=== PATIENT | female | born 1965 | race Caucasian/White ===

== ENCOUNTER 2016-11-15 18:26 | Emergency (ER) | payer MEDICAID, OTHER ==
[~2016-11-15] VITALS: Ht 165.1 cm; Wt 68.0 kg
[~2016-11-15 18:26] MED LIST: DIPH25 PO; ILOP4TAB2 PO; MIRT30 PO; VENL-68 PO; VITAD1000 PO
[2016-11-15 19:51] LABS: BASOPHILS % (AUTO) 0.4 % (0.0-2.0); EOSINOPHILS % (AUTO) 3.1 % (1.0-6.0); HEMATOCRIT 46.7 % (36-46); HEMOGLOBIN 15.8 g/dL (12.0-16.0); LYMPHOCYTES # (AUTO) 3.2 K/uL (1.0-4.8); LYMPHOCYTES % (AUTO) 28.4 % (22.0-44.0); MEAN CORPUSCULAR HEMOGLOBIN 30.7 pg (26.0-34.0); MEAN CORPUSCULAR HGB CONC 33.9 G/dL (31.0-37.0); MEAN CORPUSCULAR VOLUME 91 fL (80-100); MONOCYTES # (AUTO) 0.7 K/uL (0.1-1.0); MONOCYTES % (AUTO) 6.2 % (2.0-9.0); NEUTROPHILS # (AUTO) 6.9 K/uL (1.8-7.7); NEUTROPHILS % (AUTO) 61.9 % (40.0-70.0); PLATELET COUNT (AUTO) 296 K/uL (150-450); RED BLOOD CELL COUNT(AUTO) 5.15 MIL/uL (4.00-5.20); RED CELL DISTRIBUTION WIDTH 12.9 % (11.5-14.5); WHITE BLOOD COUNT (AUTO) 11.1 K/uL (4.5-11.0)
[2016-11-15 19:58] LABS: ANION GAP 6 mmol/L (8-16); CALCIUM, TOTAL 9.3 mg/dL (8.8-10.5); CARBON DIOXIDE 30 mmol/L (22-29); CHLORIDE 101 mmol/L (98-107); CREATININE 0.65 mg/dL (0.60-1.30); GLOMERULAR FILTR. RATE CALC > 60 mL/min (>60); POTASSIUM 4.2 mmol/L (3.5-5.1); SODIUM SERUM 137 mmol/L (136-145); UREA NITROGEN, BLOOD 18 mg/dL (7-18)
[2016-11-15 20:04] LABS: ALANINE AMINOTRANSFERASE 23 U/L (12-78); ALBUMIN 4.4 g/dL (3.4-5.0); ASPARTATE AMINOTRANSFERASE 14 U/L (15-37); BILIRUBIN,TOTAL 0.3 mg/dL (0.1-1.0); TOTAL PROTEIN, SERUM 7.7 g/dL (6.4-8.2)
[2016-11-15 21:40] VITALS: BP 118/72
== END 2016-11-15 21:43 | disposition home or self-care (01) ==
LOC: EMS 18:28
DX: F20.9 Schizophrenia, unspecified (principal); F17.210 Nicotine dependence, cigarettes, uncomplicated; Z88.1 Allergy status to other antibiotic agents; Z88.8 Allergy status to other drugs, medicaments and biological substances
CPT/HCPCS: 36415; 80053; 85025; 99284; G0480

== ENCOUNTER 2016-11-18 06:42 | Inpatient (IN) | payer MEDICAID, OTHER ==
[~2016-11-18] VITALS: Ht 165.1 cm; Wt 68.5 kg
[2016-11-18 07:18] LABS: BASOPHILS # (AUTO) 0.09 K/uL (0.00-0.20); BASOPHILS % (AUTO) 0.8 % (0.0-2.0); EOSINOPHILS # (AUTO) 0.25 K/uL (0.00-0.70); EOSINOPHILS % (AUTO) 2.26 % (1.0-6.0); HEMATOCRIT 43.4 % (36-46); HEMOGLOBIN 15.4 g/dL (12.0-16.0); LYMPHOCYTES # (AUTO) 2.2 K/uL (1.0-4.8); LYMPHOCYTES % (AUTO) 20.2 % (22.0-44.0); MEAN CORPUSCULAR HEMOGLOBIN 31.7 pg (26.0-34.0); MEAN CORPUSCULAR HGB CONC 35.5 G/dL (31.0-37.0); MEAN CORPUSCULAR VOLUME 89 fL (80-100); MONOCYTES # (AUTO) 0.6 K/uL (0.1-1.0); MONOCYTES % (AUTO) 5.1 % (2.0-9.0); NEUTROPHILS % (AUTO) 71.7 % (40.0-70.0); PLATELET COUNT (AUTO) 321 K/uL (150-450); RED BLOOD CELL COUNT(AUTO) 4.85 MIL/uL (4.00-5.20); RED CELL DISTRIBUTION WIDTH 13.2 % (11.5-14.5); WHITE BLOOD COUNT (AUTO) 11.1 K/uL (4.5-11.0)
[2016-11-18 07:32] LABS: ANION GAP 6 mmol/L (8-16); CALCIUM, TOTAL 9.4 mg/dL (8.8-10.5); CARBON DIOXIDE 30 mmol/L (22-29); CHLORIDE 101 mmol/L (98-107); CREATININE 0.78 mg/dL (0.60-1.30); GLOMERULAR FILTR. RATE CALC > 60 mL/min (>60); POTASSIUM 3.3 mmol/L (3.5-5.1); SODIUM SERUM 137 mmol/L (136-145); UREA NITROGEN, BLOOD 13 mg/dL (7-18)
[2016-11-18 07:38] LABS: ALANINE AMINOTRANSFERASE 27 U/L (12-78); ALBUMIN 4.6 g/dL (3.4-5.0); ASPARTATE AMINOTRANSFERASE 15 U/L (15-37); BILIRUBIN,TOTAL 0.4 mg/dL (0.1-1.0); TOTAL PROTEIN, SERUM 7.9 g/dL (6.4-8.2)
[2016-11-18 13:35] VITALS: BP 119/75
[2016-11-18] MEDS ORDERED: POTASSIUM CHLORIDE 20 MEQ ER TABLET PO ONE (16:30)
[2016-11-18] MEDS: NICOTINE 21 MG/24 HOUR PATCH TD SCH (19:04)
[2016-11-18 20:30] VITALS: BP 121/75
[2016-11-18] MEDS: DiphenhydrAMINE HCL 25 MG CAPSULE PO SCH (20:56)
[2016-11-18] MEDS: ILOPERIDONE 4 MG TABLET PO SCH (20:56)
[2016-11-18] MEDS: MIRTAZAPINE 15 MG TABLET PO SCH (20:56)
[2016-11-18] MEDS ORDERED: ZOLPIDEM TARTRATE 5 MG TABLET PO PRN (21:45)
[2016-11-19 00:49] VITALS: BP 118/65
[2016-11-19] MEDS ORDERED: INFLUENZA VIRUS VACCINE QVS 2016-17 (3YR+)/PF 60 MCG/0.5 ML SYRINGE IM ONE (03:15)
[2016-11-19] MEDS ORDERED: PNEUMOCOCCAL VACCINE POLYVALENT 0.5 ML VIAL [PPSV23] IM ONE (03:15)
[2016-11-19] MEDS: NICOTINE 21 MG/24 HOUR PATCH TD SCH (08:52)
[2016-11-19] MEDS: VENLAFAXINE HCL 150 MG ER CAPSULE PO SCH ×2 (08:52→08:56)
[2016-11-19] MEDS: ILOPERIDONE 4 MG TABLET PO SCH ×2 (08:56→21:00)
[2016-11-19 08:57] VITALS: BP 116/64
[2016-11-19] MEDS ORDERED: ONDANSETRON HCL 4 MG TABLET PO PRN (09:30)
[2016-11-19] MEDS ORDERED: BENZOCAINE/MENTHOL LOZENGE MM PRN (09:30)
[2016-11-19] MEDS ORDERED: ACETAMINOPHEN 325 MG TABLET PO PRN (09:30)
[2016-11-19] MEDS ORDERED: MAG HYDROX/AL HYDROX/SIMETH ES 30 ML SUSPENSION UDCUP PO PRN (09:30)
[2016-11-19] MEDS ORDERED: CloNIDine HCL 0.1 MG TABLET PO PRN (09:30)
[2016-11-19] MEDS ORDERED: BACITRACIN 28.4 GM OINTMENT TP PRN (09:30)
[2016-11-19] MEDS ORDERED: ALBUTEROL SULFATE HFA 90 MCG/PUFF 8 GM INHALER IH PRN (09:30)
[2016-11-19] MEDS ORDERED: LOPERAMIDE HCL 2 MG CAPSULE PO PRN (09:30)
[2016-11-19] MEDS ORDERED: IBUPROFEN 600 MG TABLET PO PRN (09:30)
[2016-11-19] MEDS ORDERED: PETROLATUM,WHITE 71 GM JELLY TP PRN (09:30)
[2016-11-19 16:37] VITALS: BP 119/77
[2016-11-19] MEDS: DiphenhydrAMINE HCL 25 MG CAPSULE PO SCH (20:03)
[2016-11-19] MEDS: MIRTAZAPINE 15 MG TABLET PO SCH (20:03)
[2016-11-20 04:11] VITALS: BP 104/67
[2016-11-20] MEDS: ILOPERIDONE 4 MG TABLET PO SCH ×2 (08:21→20:02)
[2016-11-20] MEDS: NICOTINE 21 MG/24 HOUR PATCH TD SCH (08:21)
[2016-11-20] MEDS: VENLAFAXINE HCL 150 MG ER CAPSULE PO SCH (08:21)
[2016-11-20] MEDS: CHOLECALCIFEROL (VIT D3) 1,000 UNITS TABLET PO SCH (08:21)
[2016-11-20] MEDS: FLUTICASONE/VILANTEROL 200-25 MCG/INH INHALER [14] IH SCH (08:22)
[2016-11-20 09:05] VITALS: BP 115/69
[2016-11-20 16:12] VITALS: BP 116/68
[2016-11-20] MEDS: DiphenhydrAMINE HCL 25 MG CAPSULE PO SCH (20:02)
[2016-11-20] MEDS: MIRTAZAPINE 15 MG TABLET PO SCH (20:03)
[2016-11-21 00:17] VITALS: BP 107/65
[2016-11-21] MEDS: ILOPERIDONE 4 MG TABLET PO SCH ×2 (08:16→20:27)
[2016-11-21] MEDS: CHOLECALCIFEROL (VIT D3) 1,000 UNITS TABLET PO SCH (08:16)
[2016-11-21] MEDS: VENLAFAXINE HCL 150 MG ER CAPSULE PO SCH (08:17)
[2016-11-21] MEDS: NICOTINE 21 MG/24 HOUR PATCH TD SCH (08:17)
[2016-11-21] MEDS: FLUTICASONE/VILANTEROL 200-25 MCG/INH INHALER [14] IH SCH (08:19)
[2016-11-21 08:48] VITALS: BP 110/70
[2016-11-21] MEDS: VENLAFAXINE HCL 75 MG ER CAPSULE PO SCH (14:47)
[2016-11-21 16:16] VITALS: BP 102/64
[2016-11-21] MEDS: MIRTAZAPINE 15 MG TABLET PO SCH (20:26)
[2016-11-21] MEDS: DiphenhydrAMINE HCL 25 MG CAPSULE PO SCH (20:26)
[2016-11-22 01:52] VITALS: BP 119/66
[2016-11-22] MEDS: FLUTICASONE/VILANTEROL 200-25 MCG/INH INHALER [14] IH SCH (08:11)
[2016-11-22] MEDS: VENLAFAXINE HCL 150 MG ER CAPSULE PO SCH (08:12)
[2016-11-22] MEDS: ILOPERIDONE 4 MG TABLET PO SCH ×2 (08:12→20:07)
[2016-11-22] MEDS: CHOLECALCIFEROL (VIT D3) 1,000 UNITS TABLET PO SCH (08:12)
[2016-11-22] MEDS: VENLAFAXINE HCL 75 MG ER CAPSULE PO SCH (08:12)
[2016-11-22] MEDS: NICOTINE 21 MG/24 HOUR PATCH TD SCH (08:13)
[2016-11-22 08:48] VITALS: BP 118/67
[2016-11-22 16:49] VITALS: BP 115/71
[2016-11-22] MEDS: DiphenhydrAMINE HCL 25 MG CAPSULE PO SCH (20:07)
[2016-11-22] MEDS: MIRTAZAPINE 15 MG TABLET PO SCH (20:07)
[2016-11-23 05:46] VITALS: BP 114/72
[2016-11-23] MEDS: FLUTICASONE/VILANTEROL 200-25 MCG/INH INHALER [14] IH SCH (08:08)
[2016-11-23] MEDS: CHOLECALCIFEROL (VIT D3) 1,000 UNITS TABLET PO SCH (08:09)
[2016-11-23] MEDS: VENLAFAXINE HCL 150 MG ER CAPSULE PO SCH (08:09)
[2016-11-23] MEDS: ILOPERIDONE 4 MG TABLET PO SCH ×2 (08:09→20:11)
[2016-11-23] MEDS: NICOTINE 21 MG/24 HOUR PATCH TD SCH (08:09)
[2016-11-23 08:47] VITALS: BP 116/68
[2016-11-23] MEDS ORDERED: VENLAFAXINE HCL 75 MG ER CAPSULE PO SCH (15:00)
[2016-11-23 16:30] VITALS: BP 102/67
[2016-11-23] MEDS: MIRTAZAPINE 15 MG TABLET PO SCH (20:11)
[2016-11-23] MEDS: DiphenhydrAMINE HCL 25 MG CAPSULE PO SCH (20:11)
[2016-11-24 06:00] VITALS: BP 101/63
[2016-11-24] MEDS: VENLAFAXINE HCL 150 MG ER CAPSULE PO SCH ×2 (08:23→15:03)
[2016-11-24] MEDS: FLUTICASONE/VILANTEROL 200-25 MCG/INH INHALER [14] IH SCH (08:23)
[2016-11-24] MEDS: NICOTINE 21 MG/24 HOUR PATCH TD SCH (08:23)
[2016-11-24] MEDS: CHOLECALCIFEROL (VIT D3) 1,000 UNITS TABLET PO SCH (08:23)
[2016-11-24] MEDS: ILOPERIDONE 4 MG TABLET PO SCH ×2 (08:23→20:55)
[2016-11-24 08:46] VITALS: BP 109/64
[2016-11-24 16:20] VITALS: BP 106/68
[2016-11-24] MEDS: MIRTAZAPINE 15 MG TABLET PO SCH (20:55)
[2016-11-24] MEDS: DiphenhydrAMINE HCL 25 MG CAPSULE PO SCH (20:55)
[2016-11-25 05:49] VITALS: BP 104/63
[2016-11-25 08:39] VITALS: BP 117/77
[2016-11-25] MEDS: FLUTICASONE/VILANTEROL 200-25 MCG/INH INHALER [14] IH SCH (08:44)
[2016-11-25] MEDS: ILOPERIDONE 4 MG TABLET PO SCH ×2 (08:45→20:55)
[2016-11-25] MEDS: CHOLECALCIFEROL (VIT D3) 1,000 UNITS TABLET PO SCH (08:45)
[2016-11-25] MEDS: VENLAFAXINE HCL 150 MG ER CAPSULE PO SCH ×2 (08:45→14:27)
[2016-11-25] MEDS: NICOTINE 21 MG/24 HOUR PATCH TD SCH (08:50)
[2016-11-25 16:13] VITALS: BP 112/64
[2016-11-25] MEDS: MAGNESIUM HYDROXIDE SUSPENSION 30 ML UDCUP PO PRN (17:23)
[2016-11-25] MEDS: DiphenhydrAMINE HCL 25 MG CAPSULE PO SCH (20:55)
[2016-11-25] MEDS: MIRTAZAPINE 15 MG TABLET PO SCH (20:55)
[2016-11-26 05:51] VITALS: BP 101/60
[2016-11-26] MEDS: FLUTICASONE/VILANTEROL 200-25 MCG/INH INHALER [14] IH SCH (08:43)
[2016-11-26] MEDS: ILOPERIDONE 4 MG TABLET PO SCH ×2 (08:44→20:20)
[2016-11-26] MEDS: CHOLECALCIFEROL (VIT D3) 1,000 UNITS TABLET PO SCH (08:44)
[2016-11-26] MEDS: VENLAFAXINE HCL 150 MG ER CAPSULE PO SCH ×2 (08:44→14:50)
[2016-11-26] MEDS: NICOTINE 21 MG/24 HOUR PATCH TD SCH (08:44)
[2016-11-26 10:43] VITALS: BP 99/68
[2016-11-26] MEDS: MAGNESIUM HYDROXIDE SUSPENSION 30 ML UDCUP PO PRN (16:19)
[2016-11-26 16:27] VITALS: BP 98/65
[2016-11-26] MEDS: MIRTAZAPINE 30 MG TABLET PO SCH (20:20)
[2016-11-26] MEDS: DiphenhydrAMINE HCL 25 MG CAPSULE PO SCH (20:20)
[2016-11-27 03:53] VITALS: BP 105/63
[2016-11-27 07:45] VITALS: BP 98/74
[2016-11-27 08:00] VITALS: BP 98/74
[2016-11-27] MEDS: ILOPERIDONE 4 MG TABLET PO SCH ×2 (08:44→21:32)
[2016-11-27] MEDS: VENLAFAXINE HCL 150 MG ER CAPSULE PO SCH ×2 (08:44→14:42)
[2016-11-27] MEDS: FLUTICASONE/VILANTEROL 200-25 MCG/INH INHALER [14] IH SCH (08:44)
[2016-11-27] MEDS: NICOTINE 21 MG/24 HOUR PATCH TD SCH (08:45)
[2016-11-27] MEDS: CHOLECALCIFEROL (VIT D3) 1,000 UNITS TABLET PO SCH (08:46)
[2016-11-27 16:17] VITALS: BP 109/69
[2016-11-27] MEDS: MIRTAZAPINE 30 MG TABLET PO SCH (21:32)
[2016-11-27] MEDS: DiphenhydrAMINE HCL 25 MG CAPSULE PO SCH (21:32)
[2016-11-28 05:25] VITALS: BP 112/63
[2016-11-28] MEDS: ILOPERIDONE 4 MG TABLET PO SCH (08:52)
[2016-11-28] MEDS: CHOLECALCIFEROL (VIT D3) 1,000 UNITS TABLET PO SCH (08:52)
[2016-11-28] MEDS: FLUTICASONE/VILANTEROL 200-25 MCG/INH INHALER [14] IH SCH (08:53)
[2016-11-28] MEDS: NICOTINE 21 MG/24 HOUR PATCH TD SCH (08:53)
[2016-11-28] MEDS: VENLAFAXINE HCL 150 MG ER CAPSULE PO SCH ×2 (08:53→15:12)
[2016-11-28 10:04] VITALS: BP 118/68
[2016-11-28 18:29] VITALS: BP 104/66
[2016-11-28] MEDS: MIRTAZAPINE 30 MG TABLET PO SCH (20:09)
[2016-11-28] MEDS: DiphenhydrAMINE HCL 25 MG CAPSULE PO SCH (20:09)
[2016-11-28] MEDS: ILOPERIDONE 2 MG TABLET PO SCH (21:50)
[2016-11-29 07:00] VITALS: BP 114/68
[2016-11-29 08:48] VITALS: BP 108/60
[2016-11-29] MEDS: VENLAFAXINE HCL 150 MG ER CAPSULE PO SCH ×2 (09:52→14:51)
[2016-11-29] MEDS: CHOLECALCIFEROL (VIT D3) 1,000 UNITS TABLET PO SCH (09:52)
[2016-11-29] MEDS: ILOPERIDONE 2 MG TABLET PO SCH ×2 (09:52→20:20)
[2016-11-29] MEDS: FLUTICASONE/VILANTEROL 200-25 MCG/INH INHALER [14] IH SCH (09:53)
[2016-11-29] MEDS: NICOTINE 21 MG/24 HOUR PATCH TD SCH (11:50)
[2016-11-29 16:18] VITALS: BP 97/68
[2016-11-29] MEDS: MIRTAZAPINE 30 MG TABLET PO SCH (20:20)
[2016-11-29] MEDS: DiphenhydrAMINE HCL 25 MG CAPSULE PO SCH (20:20)
[2016-11-30 06:26] VITALS: BP 111/65
[2016-11-30 08:53] VITALS: BP 101/63
[2016-11-30] MEDS: CHOLECALCIFEROL (VIT D3) 1,000 UNITS TABLET PO SCH (08:53)
[2016-11-30] MEDS: ILOPERIDONE 2 MG TABLET PO SCH ×2 (08:54→20:25)
[2016-11-30] MEDS: NICOTINE 21 MG/24 HOUR PATCH TD SCH (08:54)
[2016-11-30] MEDS: VENLAFAXINE HCL 150 MG ER CAPSULE PO SCH ×2 (08:55→14:35)
[2016-11-30] MEDS: FLUTICASONE/VILANTEROL 200-25 MCG/INH INHALER [14] IH SCH (08:55)
[2016-11-30 16:27] VITALS: BP 120/68
[2016-11-30] MEDS: DiphenhydrAMINE HCL 25 MG CAPSULE PO SCH (20:25)
[2016-11-30] MEDS: MIRTAZAPINE 30 MG TABLET PO SCH (20:25)
[2016-12-01 00:38] VITALS: BP 102/61
[2016-12-01] MEDS: VENLAFAXINE HCL 150 MG ER CAPSULE PO SCH ×2 (08:10→14:55)
[2016-12-01] MEDS: CHOLECALCIFEROL (VIT D3) 1,000 UNITS TABLET PO SCH (08:10)
[2016-12-01] MEDS: ILOPERIDONE 2 MG TABLET PO SCH ×2 (08:10→20:18)
[2016-12-01] MEDS: NICOTINE 21 MG/24 HOUR PATCH TD SCH (08:11)
[2016-12-01 08:35] VITALS: BP 103/68
[2016-12-01] MEDS: FLUTICASONE/VILANTEROL 200-25 MCG/INH INHALER [14] IH SCH (09:06)
[2016-12-01 16:21] VITALS: BP 115/77
[2016-12-01] MEDS: MIRTAZAPINE 30 MG TABLET PO SCH (20:18)
[2016-12-01] MEDS: DiphenhydrAMINE HCL 25 MG CAPSULE PO SCH (20:18)
[2016-12-02 07:07] VITALS: BP 101/62
[2016-12-02] MEDS: CHOLECALCIFEROL (VIT D3) 1,000 UNITS TABLET PO SCH (08:35)
[2016-12-02] MEDS: VENLAFAXINE HCL 150 MG ER CAPSULE PO SCH ×2 (08:35→14:19)
[2016-12-02] MEDS: ILOPERIDONE 2 MG TABLET PO SCH ×2 (08:35→20:17)
[2016-12-02] MEDS: NICOTINE 21 MG/24 HOUR PATCH TD SCH (08:36)
[2016-12-02] MEDS: FLUTICASONE/VILANTEROL 200-25 MCG/INH INHALER [14] IH SCH (08:36)
[2016-12-02 08:39] VITALS: BP 100/62
[2016-12-02 16:11] VITALS: BP 104/67
[2016-12-02] MEDS ORDERED: OLANZapine 5 MG RAPDIS TABLET PO PRN (18:30)
[2016-12-02] MEDS: DiphenhydrAMINE HCL 25 MG CAPSULE PO SCH (20:17)
[2016-12-02] MEDS: MIRTAZAPINE 30 MG TABLET PO SCH (20:17)
[2016-12-03 07:18] VITALS: BP 101/60
[2016-12-03 08:45] VITALS: BP 105/60
[2016-12-03] MEDS ORDERED: BuPROPion HCL XL 150 MG ER TABLET PO SCH (09:00)
[2016-12-03] MEDS: CHOLECALCIFEROL (VIT D3) 1,000 UNITS TABLET PO SCH (09:58)
[2016-12-03] MEDS: NICOTINE 21 MG/24 HOUR PATCH TD SCH (09:58)
[2016-12-03] MEDS: FLUTICASONE/VILANTEROL 200-25 MCG/INH INHALER [14] IH SCH (09:58)
[2016-12-03] MEDS: VENLAFAXINE HCL 150 MG ER CAPSULE PO SCH ×2 (09:58→14:43)
[2016-12-03] MEDS: ILOPERIDONE 2 MG TABLET PO SCH ×2 (09:59→20:24)
[2016-12-03 16:29] VITALS: BP 100/65
[2016-12-03] MEDS: MIRTAZAPINE 15 MG TABLET PO SCH (20:24)
[2016-12-03] MEDS: DiphenhydrAMINE HCL 25 MG CAPSULE PO SCH (20:24)
[2016-12-04 06:23] VITALS: BP 121/71
[2016-12-04] MEDS: BuPROPion HCL XL 150 MG ER TABLET PO SCH (08:30)
[2016-12-04] MEDS: CHOLECALCIFEROL (VIT D3) 1,000 UNITS TABLET PO SCH (08:30)
[2016-12-04] MEDS: NICOTINE 21 MG/24 HOUR PATCH TD SCH (08:31)
[2016-12-04] MEDS: VENLAFAXINE HCL 150 MG ER CAPSULE PO SCH ×2 (08:32→15:18)
[2016-12-04] MEDS: FLUTICASONE/VILANTEROL 200-25 MCG/INH INHALER [14] IH SCH (08:32)
[2016-12-04] MEDS: ILOPERIDONE 2 MG TABLET PO SCH ×2 (08:33→20:21)
[2016-12-04 08:36] VITALS: BP 106/60
[2016-12-04 16:21] VITALS: BP 102/69
[2016-12-04] MEDS: MIRTAZAPINE 15 MG TABLET PO SCH (20:20)
[2016-12-04] MEDS: DiphenhydrAMINE HCL 25 MG CAPSULE PO SCH (20:20)
[2016-12-05 00:35] VITALS: BP 103/64
[2016-12-05 08:11] VITALS: BP 106/64
[2016-12-05] MEDS: ILOPERIDONE 2 MG TABLET PO SCH ×2 (10:10→20:11)
[2016-12-05] MEDS: VENLAFAXINE HCL 150 MG ER CAPSULE PO SCH ×2 (10:11→15:09)
[2016-12-05] MEDS: CHOLECALCIFEROL (VIT D3) 1,000 UNITS TABLET PO SCH (10:11)
[2016-12-05] MEDS: NICOTINE 21 MG/24 HOUR PATCH TD SCH (10:11)
[2016-12-05] MEDS: FLUTICASONE/VILANTEROL 200-25 MCG/INH INHALER [14] IH SCH (10:11)
[2016-12-05] MEDS: BuPROPion HCL XL 150 MG ER TABLET PO SCH (10:11)
[2016-12-05 18:15] VITALS: BP 105/63
[2016-12-05] MEDS: MIRTAZAPINE 15 MG TABLET PO SCH (20:11)
[2016-12-05] MEDS: DiphenhydrAMINE HCL 25 MG CAPSULE PO SCH (20:11)
[2016-12-06 00:11] VITALS: BP 102/62
[2016-12-06] MEDS ORDERED: BUPR300T53 PO (08:43)
[2016-12-06] MEDS ORDERED: VENL150C2 PO (08:43)
[2016-12-06] MEDS ORDERED: CHOL10002 PO (08:49)
[2016-12-06] MEDS: VENLAFAXINE HCL 150 MG ER CAPSULE PO SCH (08:51)
[2016-12-06] MEDS: NICOTINE 21 MG/24 HOUR PATCH TD SCH (08:51)
[2016-12-06] MEDS: CHOLECALCIFEROL (VIT D3) 1,000 UNITS TABLET PO SCH (08:51)
[2016-12-06] MEDS: BuPROPion HCL XL 150 MG ER TABLET PO SCH (08:51)
[2016-12-06] MEDS: FLUTICASONE/VILANTEROL 200-25 MCG/INH INHALER [14] IH SCH (08:51)
[2016-12-06] MEDS: ILOPERIDONE 2 MG TABLET PO SCH (08:51)
[2016-12-06] MEDS ORDERED: FLUT1AER PO (08:57)
[2016-12-06 08:58] VITALS: BP 108/65
== END 2016-12-06 14:49 | disposition home or self-care (01) | DRG 750 ==
LOC: EMS 06:44 → AHU 11:04 → B2S 19:50
PROVIDERS: ADMIT Psychiatry & Neurology Psychiatry; ATTEND Psychiatry & Neurology Psychiatry
DX: F25.0 Schizoaffective disorder, bipolar type (principal); E55.9 Vitamin D deficiency, unspecified; R45.851 Suicidal ideations; J44.9 Chronic obstructive pulmonary disease, unspecified; R63.0 Anorexia; R45.850 Homicidal ideations; F17.210 Nicotine dependence, cigarettes, uncomplicated; Z91.19 Patient's noncompliance with other medical treatment and regimen; E87.6 Hypokalemia; G47.00 Insomnia, unspecified; K59.00 Constipation, unspecified; G89.29 Other chronic pain; M54.5 Low back pain; R53.81 Other malaise; E78.5 Hyperlipidemia, unspecified; K21.9 Gastro-esophageal reflux disease without esophagitis; Z91.14 Patient's other noncompliance with medication regimen; Z88.2 Allergy status to sulfonamides; Z88.8 Allergy status to other drugs, medicaments and biological substances; Z79.899 Other long term (current) drug therapy; Z90.710 Acquired absence of both cervix and uterus; Z87.19 Personal history of other diseases of the digestive system; Z53.29 Procedure and treatment not carried out because of patient's decision for other reasons
CPT/HCPCS: 84132; 99285; G0480

== ENCOUNTER 2023-10-15 10:35 | Emergency (ER) | payer OTHER ==
[~2023-10-15] VITALS: Ht 165.1 cm; Wt 63.6 kg
[~2023-10-15 10:35] MED LIST changes: -DIPH25 PO; -ILOP4TAB2 PO; +MIRT-89 PO; -MIRT30 PO; -VITAD1000 PO
[2023-10-15 10:36] VITALS: BP 135/73; TEMP 97.7
[2023-10-15 11:36] LABS: COVID AG,FIA SOURCE NASAL SWAB
[2023-10-15] MEDS ORDERED: IPRATROPIUM BROMIDE 0.5 MG/2.5 ML NEB SOLUTION NEB ONE (12:00)
[2023-10-15] MEDS ORDERED: PredniSONE 20 MG TABLET PO ONE (12:00)
[2023-10-15] MEDS ORDERED: ALBUTEROL SULFATE 2.5 MG/0.5 ML NEB SOLUTION NEB ONE (12:00)
[2023-10-15 12:06] LABS: INFLUENZA TYPE A NEGATIVE FOR TYPE A (NEGATIVE); INFLUENZA TYPE B NEGATIVE FOR TYPE B (NEGATIVE); SARS-COV2 (COVID) ANTIGEN,FIA Negative (Negative)
[2023-10-15 12:10] VITALS: PULSE 105; RESP 18; O2SAT 93
[2023-10-15 12:23] VITALS: PULSE 105; RESP 18; O2SAT 98
[2023-10-15] MEDS ORDERED: PRED-554 PO (14:08)
[2023-10-15] MEDS ORDERED: ALBU18HF12 IH (14:08)
[2023-10-15] MEDS ORDERED: AZIT250T9 PO (14:08)
== END 2023-10-15 15:33 | disposition home or self-care (01) ==
LOC: EMS 10:38
DX: J44.9 Chronic obstructive pulmonary disease, unspecified (principal); F20.9 Schizophrenia, unspecified; F17.210 Nicotine dependence, cigarettes, uncomplicated; Z90.710 Acquired absence of both cervix and uterus; Z88.2 Allergy status to sulfonamides; Z88.8 Allergy status to other drugs, medicaments and biological substances; Z20.822 Contact with and (suspected) exposure to COVID-19
CPT/HCPCS: 99285; 71045; 87426; 87804; 94640; 93005; J7512; J7613

== ENCOUNTER 2024-09-17 20:42 | Emergency (ER) | payer OTHER ==
[~2024-09-17] VITALS: Ht 165.1 cm; Wt 60.5 kg
[~2024-09-17 20:42] MED LIST changes: +ALBU18HF12 IH; +PRED-554 PO
[2024-09-17 20:48] VITALS: TEMP 98.6
[2024-09-18 00:04] LABS: BASOPHILS % (AUTO) 0.5 % (0.0-2.0); EOSINOPHILS % (AUTO) 1.4 % (1.0-6.0); HEMATOCRIT 43.4 % (36-46); HEMOGLOBIN 14.4 g/dL (12.0-16.0); LYMPHOCYTES # (AUTO) 1.7 K/uL (1.0-4.8); LYMPHOCYTES % (AUTO) 17.7 % (22.0-44.0); MEAN CORPUSCULAR HEMOGLOBIN 30.3 pg (26.0-34.0); MEAN CORPUSCULAR HGB CONC 33.3 G/dL (31.0-37.0); MEAN CORPUSCULAR VOLUME 91 fL (80-100); MONOCYTES # (AUTO) 0.6 K/uL (0.1-1.0); MONOCYTES % (AUTO) 6.2 % (2.0-9.0); NEUTROPHILS # (AUTO) 7.1 K/uL (1.8-7.7); NEUTROPHILS % (AUTO) 74.2 % (40.0-70.0); PLATELET COUNT (AUTO) 326 K/uL (150-450); RED BLOOD CELL COUNT(AUTO) 4.77 MIL/uL (4.00-5.20); RED CELL DISTRIBUTION WIDTH 13.8 % (11.5-14.5); WHITE BLOOD COUNT (AUTO) 9.6 K/uL (4.5-11.0)
[2024-09-18 00:27] LABS: ANION GAP 5 mmol/L (8-16); CALCIUM, TOTAL 9.1 mg/dL (8.8-10.5); CARBON DIOXIDE 32 mmol/L (22-29); CHLORIDE 104 mmol/L (98-107); CREATININE 0.57 mg/dL (0.60-1.30); GLOMERULAR FILTR. RATE CALC > 60 mL/min (>60); GLUCOSE,RANDOM 118 mg/dL (70-110); POTASSIUM 3.7 mmol/L (3.5-5.1); SODIUM SERUM 141 mmol/L (136-145); UREA NITROGEN, BLOOD 24 mg/dL (7-18)
[2024-09-18 00:31] LABS: ALCOHOL, BLOOD (SERUM) < 3 mg/dL (0-10)
[2024-09-18] MEDS: MIRTAZAPINE 15 MG TABLET PO ONE (01:40)
[2024-09-18] MEDS: OLANZapine 10 MG TABLET PO ONE (01:40)
[2024-09-18 01:43] LABS: PH,URINE DRUG SCREEN 5.5 (5.0-8.0)
[2024-09-18 01:51] LABS: AMPHET/METH SCREEN,URINE NEGATIVE (NEGATIVE); BARBITURATE SCREEN, URINE NEGATIVE (NEGATIVE); BENZODIAZEPINES SCREEN,URINE NEGATIVE (NEGATIVE); CANNABINOID SCREEN,URINE NEGATIVE (NEGATIVE); COCAINE SCREEN,URINE NEGATIVE (NEGATIVE); METHADONE SCREEN, URINE NEGATIVE (NEGATIVE); OPIATE SCREEN,URINE NEGATIVE (NEGATIVE); PHENCYCLIDINE SCREEN,URINE NEGATIVE (NEGATIVE)
[2024-09-18 02:04] LABS: ALCOHOL, URINE DRUG SCREEN NEGATIVE (NEGATIVE)
[2024-09-18 02:30] VITALS: BP 126/72; PULSE 78; RESP 17; O2SAT 99
== END 2024-09-18 03:47 | disposition home or self-care (01) ==
LOC: EMS 20:42
DX: F20.9 Schizophrenia, unspecified (principal); J44.9 Chronic obstructive pulmonary disease, unspecified; F17.210 Nicotine dependence, cigarettes, uncomplicated; Z88.1 Allergy status to other antibiotic agents; Z88.2 Allergy status to sulfonamides; Z90.710 Acquired absence of both cervix and uterus; Z79.52 Long term (current) use of systemic steroids; Z79.899 Other long term (current) drug therapy
CPT/HCPCS: 99283; 80048; 85025; 36415; 80307; G0480

== ENCOUNTER 2024-09-20 18:18 | Inpatient (IN) | payer MEDICAID, OTHER ==
[~2024-09-20] VITALS: Ht 167.6 cm; Wt 48.8 kg
[2024-09-20 18:54] LABS: BASOPHILS % (AUTO) 0.6 % (0.0-2.0); EOSINOPHILS % (AUTO) 2.5 % (1.0-6.0); HEMATOCRIT 46.6 % (36-46); HEMOGLOBIN 15.1 g/dL (12.0-16.0); LYMPHOCYTES # (AUTO) 1.7 K/uL (1.0-4.8); MEAN CORPUSCULAR HEMOGLOBIN 29.8 pg (26.0-34.0); MEAN CORPUSCULAR HGB CONC 32.3 G/dL (31.0-37.0); MEAN CORPUSCULAR VOLUME 92 fL (80-100); MONOCYTES # (AUTO) 0.8 K/uL (0.1-1.0); MONOCYTES % (AUTO) 6.5 % (2.0-9.0); NEUTROPHILS # (AUTO) 8.7 K/uL (1.8-7.7); NEUTROPHILS % (AUTO) 75.4 % (40.0-70.0); PLATELET COUNT (AUTO) 341 K/uL (150-450); RED BLOOD CELL COUNT(AUTO) 5.06 MIL/uL (4.00-5.20); RED CELL DISTRIBUTION WIDTH 14.2 % (11.5-14.5); WHITE BLOOD COUNT (AUTO) 11.6 K/uL (4.5-11.0)
[2024-09-20 19:01] LABS: ANION GAP 6 mmol/L (8-16); CALCIUM, TOTAL 9.3 mg/dL (8.8-10.5); CARBON DIOXIDE 37 mmol/L (22-29); CHLORIDE 105 mmol/L (98-107); GLOMERULAR FILTR. RATE CALC > 60 mL/min (>60); GLUCOSE,RANDOM 111 mg/dL (70-110); POTASSIUM 4.1 mmol/L (3.5-5.1); SODIUM SERUM 148 mmol/L (136-145); UREA NITROGEN, BLOOD 19 mg/dL (7-18)
[2024-09-20 19:02] LABS: ALCOHOL, BLOOD (SERUM) < 3 mg/dL (0-10)
[2024-09-21 03:36] LABS: COVID AG,FIA SOURCE NASAL SWAB
[2024-09-21 03:42] LABS: SARS-COV2 (COVID) ANTIGEN,FIA Negative (Negative)
[2024-09-21 06:14] VITALS: O2SAT 96
[2024-09-21] MEDS ORDERED: ZOLPIDEM TARTRATE 5 MG TABLET PO PRN (10:30)
[2024-09-21] MEDS ORDERED: QUEtiapine FUMARATE 100 MG TABLET PO PRN (10:30)
[2024-09-21] MEDS ORDERED: HydrOXYzine PAMOATE 50 MG CAPSULE PO PRN (10:30)
[2024-09-21 16:21] VITALS: BP 149/80; PULSE 88; RESP 18; TEMP 97.8; O2SAT 97
[2024-09-21] MEDS ORDERED: MAG HYDROX/ALUMINUM HYD/SIMETH ES 30 ML SUSPENSION UDCUP PO PRN (17:30)
[2024-09-21] MEDS ORDERED: BACITRACIN 28 GM OINTMENT TP PRN (17:30)
[2024-09-21] MEDS ORDERED: IBUPROFEN 600 MG TABLET PO PRN (17:30)
[2024-09-21] MEDS ORDERED: LOPERAMIDE HCL 2 MG CAPSULE PO PRN (17:30)
[2024-09-21] MEDS ORDERED: PETROLATUM,WHITE 28 GM JELLY TP PRN (17:30)
[2024-09-21] MEDS ORDERED: ONDANSETRON 4 MG TABLET PO PRN (17:30)
[2024-09-21] MEDS ORDERED: CloNIDine HCL 0.1 MG TABLET PO PRN (17:30)
[2024-09-21] MEDS ORDERED: MAGNESIUM HYDROXIDE SUSPENSION 30 ML UDCUP PO PRN (17:30)
[2024-09-21] MEDS ORDERED: ACETAMINOPHEN 325 MG TABLET PO PRN (17:30)
[2024-09-21] MEDS ORDERED: DOCUSATE SODIUM 100 MG CAPSULE PO PRN (17:30)
[2024-09-21] MEDS ORDERED: OMEPRAZOLE 20 MG CAPSULE PO PRN (17:30)
[2024-09-21] MEDS ORDERED: ALBUTEROL SULFATE HFA 90 MCG/PUFF 8 GM INHALER IH PRN (17:30)
[2024-09-21] MEDS ORDERED: BENZOCAINE/MENTHOL LOZENGE PO PRN (17:30)
[2024-09-21 20:59] VITALS: BP 116/72; PULSE 92; RESP 18; TEMP 98.1; O2SAT 95
[2024-09-22] MEDS ORDERED: INFLUENZA VIRUS VACCINE TVS (6MO+) 2024-25/PF 45 MCG/0.5 ML SYRINGE IM. ONE (04:15)
[2024-09-22] MEDS ORDERED: PNEUMOCOCCAL VACCINE POLYVALENT 0.5 ML SYRINGE [PPSV23] IM. ONE (04:15)
[2024-09-22 08:19] VITALS: BP 115/66; PULSE 91; RESP 16; TEMP 98.3; O2SAT 94
[2024-09-22 10:09] LABS: HEMOGLOBIN A1C 5.5 % (3.8-5.6)
[2024-09-22 10:15] LABS: ALANINE AMINOTRANSFERASE 48 U/L (12-78); ALBUMIN 3.8 g/dL (3.4-5.0); ALKALINE PHOSPHATASE 64 U/L (46-116); ANION GAP 3 mmol/L (8-16); ASPARTATE AMINOTRANSFERASE 30 U/L (15-37); BILIRUBIN,TOTAL 0.6 mg/dL (0.1-1.0); CALCIUM, TOTAL 9.2 mg/dL (8.8-10.5); CARBON DIOXIDE 34 mmol/L (22-29); CHLORIDE 101 mmol/L (98-107); CHOL/HDL RATIO 2.1 (3.9-5.7); CHOLESTEROL 154 mg/dL (131-200); CREATININE 0.63 mg/dL (0.60-1.30); FREE T4 (FREE THYROXINE) 1.22 ng/dL (0.76-1.46); GLOMERULAR FILTR. RATE CALC > 60 mL/min (>60); GLUCOSE,RANDOM 111 mg/dL (70-110); HDL CHOLESTEROL 75 mg/dL (40-60); LDL CHOL (CALC.) 54 mg/dL (0-130); POTASSIUM 4.2 mmol/L (3.5-5.1); SODIUM SERUM 138 mmol/L (136-145); THYROID STIMULATING HORMONE 0.38 uIU/mL (0.36-3.74); TOTAL PROTEIN, SERUM 6.9 g/dL (6.4-8.2); TRIGLYCERIDES 123 mg/dL (15-150); UREA NITROGEN, BLOOD 16 mg/dL (7-18)
[2024-09-22] MEDS: ESCITALOPRAM OXALATE 10 MG TABLET PO SCH (13:00)
[2024-09-22] MEDS: ARIPiprazole 5 MG TABLET PO SCH (13:00)
[2024-09-22] MEDS ORDERED: OLANZapine 5 MG RAPDIS TABLET PO PRN (17:45)
[2024-09-22 21:01] VITALS: BP 104/76; PULSE 95; RESP 16; TEMP 97.1; O2SAT 95
[2024-09-22] MEDS: OLANZapine 5 MG RAPDIS TABLET PO SCH (21:45)
[2024-09-22 23:05] VITALS: BP 113/62; PULSE 91; RESP 16; TEMP 97.3; O2SAT 98
[2024-09-22 23:20] VITALS: BP 104/65; PULSE 92; RESP 18; TEMP 97.1; O2SAT 96
[2024-09-22 23:35] VITALS: BP 95/57; PULSE 94; RESP 18; TEMP 97.1; O2SAT 97
[2024-09-23] VITALS (9 sets, daily range): BP systolic 92–123; BP diastolic 58–78; PULSE 88–103; RESP 17–18; TEMP 97.1–97.3; O2SAT 95–98
[2024-09-23] MEDS: FLUoxetine HCL 20 MG CAPSULE PO SCH (09:24)
[2024-09-24 01:15] VITALS: BP 110/78; PULSE 86; RESP 18; TEMP 98
[2024-09-24 08:44] VITALS: BP 107/72; PULSE 98; RESP 19; TEMP 98; O2SAT 96
[2024-09-24 09:00] LABS: APPEARANCE,URINE HAZY (CLEAR); BILIRUBIN,URINE NEGATIVE (NEGATIVE); COLOR,URINE YELLOW (YELLOW); GLUCOSE, URINE (UA) NEGATIVE (NEGATIVE); KETONES,URINE NEGATIVE (NEGATIVE); LEUKOCYTE ESTERASE ,URINE NEGATIVE (NEGATIVE); NITRATE,URINE NEGATIVE (NEGATIVE); OCCULT BLOOD,URINE NEGATIVE (NEGATIVE); PROTEIN,URINE NEGATIVE (NEGATIVE); SPECIFIC GRAVITIY, URINE 1.024 (1.003-1.030); UROBILINOGEN,URINE <=1.0 mg/dL (<=1.0)
[2024-09-24 09:09] LABS: ALCOHOL, URINE DRUG SCREEN NEGATIVE (NEGATIVE); AMPHET/METH SCREEN,URINE NEGATIVE (NEGATIVE); BARBITURATE SCREEN, URINE NEGATIVE (NEGATIVE); BENZODIAZEPINES SCREEN,URINE NEGATIVE (NEGATIVE); CANNABINOID SCREEN,URINE NEGATIVE (NEGATIVE); COCAINE SCREEN,URINE NEGATIVE (NEGATIVE); METHADONE SCREEN, URINE NEGATIVE (NEGATIVE); OPIATE SCREEN,URINE NEGATIVE (NEGATIVE); PHENCYCLIDINE SCREEN,URINE NEGATIVE (NEGATIVE)
[2024-09-24] MEDS: BuPROPion HCL XL 150 MG ER TABLET PO SCH (09:30)
[2024-09-24] MEDS: LamoTRIgine 25 MG TABLET PO SCH (09:30)
[2024-09-24] MEDS: OLANZapine 10 MG RAPDIS TABLET PO SCH (20:00)
[2024-09-24 20:15] VITALS: BP 119/66; PULSE 93; RESP 18; TEMP 98.3; O2SAT 97
[2024-09-24 21:16] VITALS: BP 119/66; PULSE 82; RESP 18; TEMP 97.9
[2024-09-25] MEDS: BACITRACIN 28 GM OINTMENT TP SCH (03:01)
[2024-09-25 08:07] VITALS: BP 108/67; PULSE 93; RESP 17; TEMP 98; O2SAT 98
[2024-09-25 20:00] VITALS: BP 110/70; PULSE 97; RESP 17; TEMP 98; O2SAT 95
[2024-09-25] MEDS ORDERED: MELA5TAB40 PO (22:34)
[2024-09-25] MEDS ORDERED: OLAN10TA26 PO (22:34)
[2024-09-25] MEDS ORDERED: OMEG100033 PO (22:34)
[2024-09-25] MEDS ORDERED: NALT50TA6 PO (22:34)
[2024-09-25] MEDS ORDERED: BUPR-514 PO (22:34)
[2024-09-25] MEDS ORDERED: LAMO25TA36 PO (22:34)
[2024-09-25 23:00] VITALS: BP_SYST 122; BP_SYST 124; BP_DIAS 71; BP_DIAS 85; PULSE 86; PULSE 97; RESP 18; TEMP 98.3; O2SAT 98
[2024-09-26 08:33] VITALS: BP 106/69; PULSE 98; RESP 19; TEMP 98; O2SAT 99
[2024-09-26 10:37] VITALS: BP 106/69; PULSE 98; RESP 19; TEMP 98; O2SAT 98
== END 2024-09-26 12:56 | disposition home or self-care (01) | DRG 750 ==
LOC: EMS 18:18 → B2S 09-21 10:11
PROVIDERS: ADMIT Psychiatry & Neurology Psychiatry; ATTEND Psychiatry & Neurology Psychiatry
PROC: GZHZZZZ Group Psychotherapy (ICD-10-PCS; principal; 2024-09-22)
PROC: GZ52ZZZ Individual Psychotherapy, Cognitive (ICD-10-PCS; 2024-09-22)
DX: F25.0 Schizoaffective disorder, bipolar type (principal); Z91.148 Patient's other noncompliance with medication regimen for other reason; R45.851 Suicidal ideations; E55.9 Vitamin D deficiency, unspecified; Z20.822 Contact with and (suspected) exposure to COVID-19; F41.9 Anxiety disorder, unspecified; G47.00 Insomnia, unspecified; M54.50 Low back pain, unspecified; J44.9 Chronic obstructive pulmonary disease, unspecified; F32.A Depression, unspecified; K59.00 Constipation, unspecified; Z90.710 Acquired absence of both cervix and uterus; Z56.0 Unemployment, unspecified; Z88.8 Allergy status to other drugs, medicaments and biological substances; Z55.9 Problems related to education and literacy, unspecified; Z59.9 Problem related to housing and economic circumstances, unspecified; Z65.3 Problems related to other legal circumstances; Z63.9 Problem related to primary support group, unspecified; F17.210 Nicotine dependence, cigarettes, uncomplicated
CPT/HCPCS: 80048; 80053; 80061; 80307; 81003; 83036; 84439; 84443; 85025; G0480

== ENCOUNTER 2025-01-26 18:29 | Inpatient (IN) | payer MEDICAID, OTHER ==
[~2025-01-26] VITALS: Ht 165.1 cm; Wt 55.1 kg
[~2025-01-26 18:29] MED LIST changes: -ALBU18HF12 IH; +BUPR-50 PO; +LAMO25TA36 PO; +MELA5TAB40 PO; +NALT50TA6 PO; +OLAN10TA26 PO; +OMEG100033 PO
[2025-01-26 19:59] LABS: BASOPHILS % (AUTO) 0.7 % (0.0-2.0); EOSINOPHILS % (AUTO) 7.7 % (1.0-6.0); HEMATOCRIT 47.1 % (36-46); HEMOGLOBIN 15.3 g/dL (12.0-16.0); LYMPHOCYTES # (AUTO) 1.3 K/uL (1.0-4.8); LYMPHOCYTES % (AUTO) 18.3 % (22.0-44.0); MEAN CORPUSCULAR HEMOGLOBIN 29.9 pg (26.0-34.0); MEAN CORPUSCULAR HGB CONC 32.4 G/dL (31.0-37.0); MEAN CORPUSCULAR VOLUME 92 fL (80-100); MONOCYTES # (AUTO) 0.4 K/uL (0.1-1.0); NEUTROPHILS # (AUTO) 4.8 K/uL (1.8-7.7); NEUTROPHILS % (AUTO) 67.3 % (40.0-70.0); PLATELET COUNT (AUTO) 271 K/uL (150-450); RED BLOOD CELL COUNT(AUTO) 5.12 MIL/uL (4.00-5.20); RED CELL DISTRIBUTION WIDTH 13.9 % (11.5-14.5); WHITE BLOOD COUNT (AUTO) 7.1 K/uL (4.5-11.0)
[2025-01-26 20:12] LABS: ANION GAP 1 mmol/L (8-16); CALCIUM, TOTAL 9.5 mg/dL (8.8-10.5); CARBON DIOXIDE 36 mmol/L (22-29); CHLORIDE 103 mmol/L (98-107); CREATININE 0.62 mg/dL (0.60-1.30); GLOMERULAR FILTR. RATE CALC > 60 mL/min (>60); GLUCOSE,RANDOM 104 mg/dL (70-110); POTASSIUM 4.6 mmol/L (3.5-5.1); SODIUM SERUM 140 mmol/L (136-145); UREA NITROGEN, BLOOD 13 mg/dL (7-18)
[2025-01-26 20:40] LABS: ALCOHOL, BLOOD (SERUM) < 3 mg/dL (0-10)
[2025-01-26] MEDS: OLANZapine 5 MG RAPDIS TABLET PO SCH (21:00)
[2025-01-26] MEDS ORDERED: ZOLPIDEM TARTRATE 10 MG TABLET PO PRN (21:15)
[2025-01-26 21:37] LABS: COVID AG,FIA SOURCE NASAL SWAB
[2025-01-26 22:12] LABS: SARS-COV2 (COVID) ANTIGEN,FIA Negative (Negative)
[2025-01-26] MEDS: MIRTAZAPINE 15 MG TABLET PO SCH (23:51)
[2025-01-26] MEDS: MELATONIN 5 MG TABLET PO SCH (23:51)
[2025-01-27 03:51] VITALS: BP 133/61; PULSE 85; RESP 16; TEMP 96.8; O2SAT 96
[2025-01-27 04:03] VITALS: BP 133/61; PULSE 85; RESP 16; TEMP 96.8; O2SAT 96
[2025-01-27 08:42] VITALS: BP 111/72; PULSE 98; RESP 17; O2SAT 93
[2025-01-27] MEDS: VENLAFAXINE HCL 150 MG ER CAPSULE PO SCH (08:45)
[2025-01-27] MEDS ORDERED: PNEUMOCOCCAL VACCINE POLYVALENT 0.5 ML SYRINGE [PPSV23] IM. ONE (09:15)
[2025-01-27] MEDS ORDERED: ALBUTEROL SULFATE HFA 90 MCG/PUFF 8 GM INHALER IH PRN (10:30)
[2025-01-27] MEDS ORDERED: CloNIDine HCL 0.1 MG TABLET PO PRN (10:30)
[2025-01-27] MEDS ORDERED: MAG HYDROX/ALUMINUM HYD/SIMETH ES 30 ML SUSPENSION UDCUP PO PRN (10:30)
[2025-01-27] MEDS ORDERED: LOPERAMIDE HCL 2 MG CAPSULE PO PRN (10:30)
[2025-01-27] MEDS ORDERED: BENZOCAINE/MENTHOL [CEPACOL] LOZENGE PO PRN (10:30)
[2025-01-27] MEDS ORDERED: ONDANSETRON 4 MG TABLET PO PRN (10:30)
[2025-01-27] MEDS ORDERED: ACETAMINOPHEN 325 MG TABLET PO PRN (10:30)
[2025-01-27] MEDS ORDERED: DOCUSATE SODIUM 100 MG CAPSULE PO PRN (10:30)
[2025-01-27] MEDS ORDERED: MELATONIN 5 MG TABLET PO PRN (10:30)
[2025-01-27] MEDS ORDERED: BACITRACIN 28 GM OINTMENT TP PRN (10:30)
[2025-01-27] MEDS ORDERED: MAGNESIUM HYDROXIDE SUSPENSION 30 ML UDCUP PO PRN (10:30)
[2025-01-27] MEDS ORDERED: PETROLATUM,WHITE 28 GM JELLY TP PRN (10:30)
[2025-01-27] MEDS ORDERED: OMEPRAZOLE 20 MG CAPSULE PO PRN (10:30)
[2025-01-27] MEDS ORDERED: IBUPROFEN 600 MG TABLET PO PRN (10:30)
[2025-01-27 20:22] VITALS: BP 124/74; PULSE 93; RESP 17; TEMP 98; O2SAT 90
[2025-01-28 06:07] LABS: HEPATITIS C AB (EIA) Non Reactive (Non Reactive)
[2025-01-28 08:35] VITALS: BP 109/62; PULSE 87; RESP 17; TEMP 99.1; O2SAT 94
[2025-01-28 20:40] VITALS: BP 129/81; PULSE 91; RESP 16; TEMP 98.2; O2SAT 93
[2025-01-29 09:17] VITALS: BP 111/73; PULSE 86; RESP 16; TEMP 96.8; O2SAT 92
[2025-01-29 13:08] VITALS: BP 111/73; PULSE 86; RESP 16; TEMP 96.8; O2SAT 92
[2025-01-29 20:42] VITALS: BP 122/73; PULSE 86; RESP 17; TEMP 96.9; O2SAT 93
[2025-01-30 08:33] VITALS: BP 133/79; PULSE 79; RESP 16; TEMP 97.4; O2SAT 98
[2025-01-30 20:28] VITALS: BP 121/70; PULSE 78; RESP 16; TEMP 97.8; O2SAT 98
[2025-01-31 09:17] VITALS: BP 104/77; PULSE 81; RESP 16; TEMP 97.3; O2SAT 95
[2025-01-31 20:49] VITALS: BP 123/79; PULSE 73; RESP 18; TEMP 97.1; O2SAT 95
[2025-02-01 08:32] VITALS: BP 110/69; PULSE 77; RESP 18; TEMP 97.8; O2SAT 96
[2025-02-01 20:57] VITALS: BP 118/80; PULSE 71; RESP 16; TEMP 97.4; O2SAT 97
[2025-02-02 08:28] VITALS: BP 120/96; PULSE 88; RESP 18; TEMP 97.3; O2SAT 95
[2025-02-02] MEDS ORDERED: QUEtiapine FUMARATE 100 MG TABLET PO PRN (18:00)
[2025-02-02] MEDS ORDERED: ZOLPIDEM TARTRATE 10 MG TABLET PO PRN (18:00)
[2025-02-02 20:19] VITALS: BP 123/89; PULSE 92; RESP 16; TEMP 98.2; O2SAT 95
[2025-02-02] MEDS: MIRTAZAPINE 15 MG TABLET PO SCH (20:34)
[2025-02-02] MEDS: OLANZapine 5 MG RAPDIS TABLET PO SCH (20:35)
[2025-02-03] MEDS: VENLAFAXINE HCL 75 MG ER CAPSULE PO SCH (08:23)
[2025-02-03 08:24] VITALS: BP 115/72; PULSE 86; RESP 16; TEMP 97.7; O2SAT 92
[2025-02-03] MEDS: FLUoxetine HCL 10 MG CAPSULE PO SCH (08:32)
[2025-02-03 20:08] VITALS: BP 121/65; PULSE 88; RESP 16; TEMP 98.9; O2SAT 97
[2025-02-03] MEDS: OLANZapine 10 MG RAPDIS TABLET PO SCH (20:18)
[2025-02-04 08:16] VITALS: BP 114/76; PULSE 80; RESP 17; TEMP 97.3; O2SAT 95
[2025-02-04] MEDS: LamoTRIgine 25 MG TABLET PO SCH (08:29)
[2025-02-04 20:00] VITALS: BP 114/74; PULSE 87; RESP 16; TEMP 98.2; O2SAT 95
[2025-02-05 08:30] VITALS: BP 103/66; PULSE 83; RESP 17; TEMP 96.9; O2SAT 93
[2025-02-05] MEDS ORDERED: MELA5TAB40 PO (17:01)
[2025-02-05] MEDS ORDERED: FLUO-341 PO (17:01)
[2025-02-05] MEDS ORDERED: MIRT-89 PO (17:01)
[2025-02-05] MEDS: MIRTAZAPINE 15 MG TABLET PO SCH (20:23)
[2025-02-05 20:48] VITALS: BP 113/68; PULSE 92; RESP 16; TEMP 97.5; O2SAT 98
[2025-02-06 08:33] VITALS: BP 110/68; PULSE 100; RESP 17; TEMP 97.6; O2SAT 90
[2025-02-06] MEDS: OLANZapine 2.5 MG TABLET PO SCH (16:15)
[2025-02-06] MEDS: OLANZapine 10 MG RAPDIS TABLET PO SCH (20:15)
[2025-02-06 20:28] VITALS: BP 107/65; PULSE 93; RESP 17; TEMP 98.7; O2SAT 97
[2025-02-07 08:10] VITALS: BP 127/69; PULSE 101; RESP 20; TEMP 97.6; O2SAT 96
[2025-02-07] MEDS: PARoxetine HCL 10 MG TABLET PO SCH (08:35)
[2025-02-07 20:44] VITALS: BP_SYST 121; BP_SYST 122; BP_DIAS 66; BP_DIAS 79; PULSE 88; PULSE 94; RESP 16; TEMP 96.5; O2SAT 91; O2SAT 94
[2025-02-07] MEDS: AMANTADINE HCL 100 MG CAPSULE PO SCH (21:23)
[2025-02-08 08:10] VITALS: BP 100/67; PULSE 94; RESP 16; TEMP 97.3; O2SAT 94
[2025-02-08 20:00] VITALS: BP 100/60; PULSE 96; RESP 17; TEMP 97.9; O2SAT 96
[2025-02-09 08:00] VITALS: BP 96/70; PULSE 85; RESP 18; TEMP 97.9; O2SAT 95
[2025-02-09 20:20] VITALS: BP 103/60; PULSE 96; RESP 18; TEMP 97.2; O2SAT 97
[2025-02-10 09:03] VITALS: BP 112/67; PULSE 93; RESP 19; TEMP 97.5; O2SAT 96
== END 2025-02-10 13:36 | disposition home or self-care (01) | DRG 750 ==
LOC: EMS 18:29 → B2S 01-27 01:39
PROVIDERS: ADMIT Psychiatry & Neurology Psychiatry; ATTEND Psychiatry & Neurology Psychiatry
PROC: GZHZZZZ Group Psychotherapy (ICD-10-PCS; principal; 2025-02-10)
PROC: GZ51ZZZ Individual Psychotherapy, Behavioral (ICD-10-PCS; 2025-02-10)
DX: F25.0 Schizoaffective disorder, bipolar type (principal); L51.1 Stevens-Johnson syndrome; F41.9 Anxiety disorder, unspecified; G47.00 Insomnia, unspecified; K59.00 Constipation, unspecified; Z20.822 Contact with and (suspected) exposure to COVID-19; J44.9 Chronic obstructive pulmonary disease, unspecified; Z87.891 Personal history of nicotine dependence; Z90.710 Acquired absence of both cervix and uterus; Z91.148 Patient's other noncompliance with medication regimen for other reason; Z91.51 Personal history of suicidal behavior; Z91.52 Personal history of nonsuicidal self-harm; Z79.899 Other long term (current) drug therapy
CPT/HCPCS: 80048; 85025; 86803; 87340; 99285; G0480

== ENCOUNTER 2025-03-26 12:56 | Inpatient (IN) | payer MEDICAID ==
[~2025-03-26] VITALS: Ht 165.1 cm; Wt 61.0 kg
[~2025-03-26 12:56] MED LIST changes: +ALBU18HF12 IH; -BUPR-50 PO; +FLUO-341 PO; +LEVO-72 PO; -MELA5TAB40 PO; +MIRT-149 PO; -MIRT-89 PO; -NALT50TA6 PO; -OLAN10TA26 PO; +OLAN10TA74 PO; -OMEG100033 PO; -VENL-68 PO
[2025-03-26] MEDS ORDERED: MELATONIN 5 MG TABLET PO PRN (15:45)
[2025-03-26 16:45] VITALS: BP 116/63; PULSE 102; RESP 16; TEMP 99.7; O2SAT 92
[2025-03-26 19:53] VITALS: PULSE 102; RESP 16; O2SAT 93
[2025-03-26 19:55] LABS: GLUCOMETER DEV NAME(LOC) POC.BV; POC SARS-COV2 AG, FIA NEGATIVE (NEGATIVE)
[2025-03-26] MEDS: MIRTAZAPINE 30 MG TABLET PO SCH (20:20)
[2025-03-26] MEDS: OLANZapine 10 MG TABLET PO SCH (20:21)
[2025-03-26 20:51] VITALS: BP 106/84; PULSE 100; RESP 16; TEMP 98.2; O2SAT 100
[2025-03-26] MEDS ORDERED: ChlorproMAZINE HCL 100 MG TABLET PO PRN (22:15)
[2025-03-27] MEDS: ZOLPIDEM TARTRATE 10 MG TABLET PO PRN (00:11)
[2025-03-27] MEDS: ALBUTEROL SULFATE HFA 90 MCG/PUFF 8 GM INHALER IH PRN (05:05)
[2025-03-27] MEDS: FLUoxetine HCL 10 MG CAPSULE PO SCH (08:03)
[2025-03-27] MEDS: LamoTRIgine 25 MG TABLET PO SCH (08:04)
[2025-03-27 08:37] VITALS: BP 114/75; PULSE 96; RESP 18; TEMP 97.7; O2SAT 93
[2025-03-27 08:38] LABS: BASOPHILS % (AUTO) 0.5 % (0.0-2.0); HEMATOCRIT 45.9 % (36-46); HEMOGLOBIN 14.7 g/dL (12.0-16.0); LYMPHOCYTES # (AUTO) 2.2 K/uL (1.0-4.8); MEAN CORPUSCULAR HEMOGLOBIN 29.2 pg (26.0-34.0); MEAN CORPUSCULAR VOLUME 91 fL (80-100); MONOCYTES # (AUTO) 1.1 K/uL (0.1-1.0); MONOCYTES % (AUTO) 9.4 % (2.0-9.0); NEUTROPHILS # (AUTO) 8.2 K/uL (1.8-7.7); NEUTROPHILS % (AUTO) 68.1 % (40.0-70.0); PLATELET COUNT (AUTO) 362 K/uL (150-450); RED BLOOD CELL COUNT(AUTO) 5.02 MIL/uL (4.00-5.20); RED CELL DISTRIBUTION WIDTH 14.4 % (11.5-14.5)
[2025-03-27 08:56] LABS: HEMOGLOBIN A1C 5.6 % (3.8-5.6)
[2025-03-27 09:04] LABS: ALANINE AMINOTRANSFERASE 28 U/L (12-78); ALBUMIN 3.7 g/dL (3.4-5.0); ALKALINE PHOSPHATASE 85 U/L (46-116); ANION GAP 3 mmol/L (8-16); ASPARTATE AMINOTRANSFERASE 19 U/L (15-37); BILIRUBIN,TOTAL 1.1 mg/dL (0.1-1.0); CALCIUM, TOTAL 8.9 mg/dL (8.8-10.5); CARBON DIOXIDE 35 mmol/L (22-29); CHLORIDE 99 mmol/L (98-107); CHOL/HDL RATIO 2.2 (3.9-5.7); CHOLESTEROL 195 mg/dL (131-200); CREATININE 0.66 mg/dL (0.60-1.30); GLOMERULAR FILTR. RATE CALC > 60 mL/min (>60); GLUCOSE,RANDOM 99 mg/dL (70-110); HDL CHOLESTEROL 87 mg/dL (40-60); LDL CHOL (CALC.) 96 mg/dL (0-130); POTASSIUM 4.3 mmol/L (3.5-5.1); SODIUM SERUM 137 mmol/L (136-145); THYROID STIMULATING HORMONE 1.13 uIU/mL (0.36-3.74); TRIGLYCERIDES 61 mg/dL (15-150); UREA NITROGEN, BLOOD 15 mg/dL (7-18)
[2025-03-27] MEDS ORDERED: LOPERAMIDE HCL 2 MG CAPSULE PO PRN (09:15)
[2025-03-27] MEDS ORDERED: ACETAMINOPHEN 325 MG TABLET PO PRN (09:15)
[2025-03-27] MEDS ORDERED: HydrOXYzine PAMOATE 50 MG CAPSULE PO PRN (09:15)
[2025-03-27] MEDS ORDERED: MAGNESIUM HYDROXIDE SUSPENSION 30 ML UDCUP PO PRN (09:15)
[2025-03-27] MEDS ORDERED: OLANZapine 5 MG RAPDIS TABLET PO PRN (09:15)
[2025-03-27] MEDS ORDERED: PROMETHAZINE HCL 25 MG TABLET PO PRN (09:15)
[2025-03-27] MEDS ORDERED: GuaiFENesin/D-METHORPHAN [SUGAR-FREE] 200-20MG/10 ML SYRUP UDCUP PO PRN (09:15)
[2025-03-27] MEDS ORDERED: MAG HYDROX/ALUMINUM HYD/SIMETH ES 30 ML SUSPENSION UDCUP PO PRN (09:15)
[2025-03-27] MEDS: THIAMINE 100 MG TABLET PO SCH (16:12)
[2025-03-27 20:20] VITALS: BP 116/69; PULSE 96; RESP 17; TEMP 98.1; O2SAT 97
[2025-03-27] MEDS: MELATONIN 5 MG TABLET PO SCH (20:27)
[2025-03-28] MEDS: HydrOXYzine PAMOATE 50 MG CAPSULE PO PRN (04:13)
[2025-03-28] MEDS: MULTIVITAMINS WITH MINERALS, THERAPEUTIC TABLET PO SCH (08:38)
[2025-03-28] MEDS: FOLIC ACID 1 MG TABLET PO SCH (08:39)
[2025-03-28] MEDS: PSYLLIUM SEED ORANGE SF 5.8 GM/PACKET PO SCH (08:42)
[2025-03-28 09:59] LABS: CHOL/HDL RATIO 2.3 (3.9-5.7)
[2025-03-28 10:09] VITALS: BP 109/73; PULSE 74; RESP 18; TEMP 97.8; O2SAT 97
[2025-03-28] MEDS: TUBERCULIN, PURIFIED PROTEIN DERIVATIVE 5 TU/0.1 ML SYRINGE ID ONE (14:43)
[2025-03-28 20:15] VITALS: BP 113/66; PULSE 93; RESP 17; TEMP 97.7; O2SAT 96
[2025-03-29 08:34] VITALS: BP 127/85; PULSE 88; RESP 16; TEMP 97.7; O2SAT 99
[2025-03-29 20:49] VITALS: BP 110/81; PULSE 97; RESP 18; TEMP 98.4; O2SAT 90
[2025-03-30 08:34] VITALS: BP 112/66; PULSE 93; RESP 16; TEMP 97.4; O2SAT 92
[2025-03-30 08:54] LABS: BASOPHILS % (AUTO) 0.8 % (0.0-2.0); EOSINOPHILS % (AUTO) 4.9 % (1.0-6.0); HEMOGLOBIN 13.8 g/dL (12.0-16.0); LYMPHOCYTES # (AUTO) 2.1 K/uL (1.0-4.8); LYMPHOCYTES % (AUTO) 22.2 % (22.0-44.0); MEAN CORPUSCULAR HEMOGLOBIN 29.7 pg (26.0-34.0); MEAN CORPUSCULAR HGB CONC 32.9 G/dL (31.0-37.0); MEAN CORPUSCULAR VOLUME 90 fL (80-100); MONOCYTES # (AUTO) 0.8 K/uL (0.1-1.0); MONOCYTES % (AUTO) 8.3 % (2.0-9.0); NEUTROPHILS % (AUTO) 63.8 % (40.0-70.0); PLATELET COUNT (AUTO) 332 K/uL (150-450); RED BLOOD CELL COUNT(AUTO) 4.65 MIL/uL (4.00-5.20); RED CELL DISTRIBUTION WIDTH 14.1 % (11.5-14.5); WHITE BLOOD COUNT (AUTO) 9.4 K/uL (4.5-11.0)
[2025-03-30 09:15] LABS: APPEARANCE,URINE CLEAR (CLEAR); BILIRUBIN,URINE NEGATIVE (NEGATIVE); COLOR,URINE COLORLESS (YELLOW); GLUCOSE, URINE (UA) NEGATIVE (NEGATIVE); KETONES,URINE NEGATIVE (NEGATIVE); LEUKOCYTE ESTERASE ,URINE TRACE (NEGATIVE); NITRATE,URINE NEGATIVE (NEGATIVE); OCCULT BLOOD,URINE NEGATIVE (NEGATIVE); PH,URINE 7.5 (5.0-8.0); PH,URINE DRUG SCREEN 7.5 (5.0-8.0); PROTEIN,URINE NEGATIVE (NEGATIVE); SPECIFIC GRAVITIY, URINE 1.007 (1.003-1.030); UROBILINOGEN,URINE <=1.0 mg/dL (<=1.0)
[2025-03-30 09:23] LABS: ALCOHOL, URINE DRUG SCREEN NEGATIVE (NEGATIVE); AMPHET/METH SCREEN,URINE NEGATIVE (NEGATIVE); BARBITURATE SCREEN, URINE NEGATIVE (NEGATIVE); BENZODIAZEPINES SCREEN,URINE NEGATIVE (NEGATIVE); CANNABINOID SCREEN,URINE NEGATIVE (NEGATIVE); COCAINE SCREEN,URINE NEGATIVE (NEGATIVE); METHADONE SCREEN, URINE NEGATIVE (NEGATIVE); OPIATE SCREEN,URINE NEGATIVE (NEGATIVE); PHENCYCLIDINE SCREEN,URINE NEGATIVE (NEGATIVE)
[2025-03-30 09:28] LABS: RBC,URINE None Seen /HPF (0-2)
[2025-03-30 09:29] LABS: BACTERIA,URINE None Seen /HPF (None Seen); SQUAMOUS EPITHELIAL CELL,UR Few /LPF (None Seen); WBC,URINE 0-2 /HPF (0-5)
[2025-03-30] MEDS: FLUTICASONE/VILANTEROL 100-25 MCG/INH INHALER [14] IH SCH (17:27)
[2025-03-30 21:04] VITALS: BP 108/61; PULSE 90; RESP 18; TEMP 97.8; O2SAT 94
[2025-03-31 04:13] VITALS: BP 120/80; PULSE 80; RESP 18; TEMP 97.9; O2SAT 95
[2025-03-31 08:56] VITALS: BP 118/76; PULSE 97; RESP 16; TEMP 98.2; O2SAT 91
[2025-03-31 14:10] VITALS: BP 118/76; PULSE 97; RESP 16; TEMP 98.2; O2SAT 91
[2025-03-31 20:09] VITALS: BP 101/59; PULSE 100; RESP 16; TEMP 98.1; O2SAT 92
[2025-03-31] MEDS ORDERED: LAMO25TA36 PO (22:50)
[2025-03-31] MEDS ORDERED: OLAN10TA74 PO (22:50)
[2025-03-31] MEDS ORDERED: MELA5TAB40 PO (22:50)
[2025-03-31] MEDS ORDERED: MIRT-149 PO (22:50)
[2025-03-31 23:55] VITALS: BP 101/59; PULSE 100; RESP 16; TEMP 98.1; O2SAT 92
[2025-04-01 08:42] VITALS: BP 117/61; PULSE 101; RESP 17; TEMP 98.2; O2SAT 90
[2025-04-01] MEDS ORDERED: FLUT1AER IH (09:38)
[2025-04-01] MEDS ORDERED: ALBU18HF12 IH (09:38)
== END 2025-04-01 13:50 | disposition home or self-care (01) | DRG 753 ==
LOC: B2S 15:25 → UNDOADMIN 15:25 → B2S 16:04
PROVIDERS: ADMIT Psychiatry & Neurology Psychiatry; ATTEND Psychiatry & Neurology Psychiatry
PROC: GZHZZZZ Group Psychotherapy (ICD-10-PCS; principal; 2025-04-01)
PROC: GZ51ZZZ Individual Psychotherapy, Behavioral (ICD-10-PCS; 2025-04-01)
PROC: GZ56ZZZ Individual Psychotherapy, Supportive (ICD-10-PCS; 2025-04-01)
DX: F31.10 Bipolar disorder, current episode manic without psychotic features, unspecified (principal); R45.851 Suicidal ideations; F25.9 Schizoaffective disorder, unspecified; F41.9 Anxiety disorder, unspecified; G47.00 Insomnia, unspecified; J44.9 Chronic obstructive pulmonary disease, unspecified; Z20.822 Contact with and (suspected) exposure to COVID-19; Z55.9 Problems related to education and literacy, unspecified; Z56.0 Unemployment, unspecified; Z59.9 Problem related to housing and economic circumstances, unspecified; Z63.9 Problem related to primary support group, unspecified; Z65.3 Problems related to other legal circumstances; Z91.199 Patient's noncompliance with other medical treatment and regimen due to unspecified reason; Z88.6 Allergy status to analgesic agent; Z88.1 Allergy status to other antibiotic agents; Z88.3 Allergy status to other anti-infective agents; Z88.2 Allergy status to sulfonamides; Z88.8 Allergy status to other drugs, medicaments and biological substances; F06.30 Mood disorder due to known physiological condition, unspecified
CPT/HCPCS: 80053; 80061; 80307; 81001; 83036; 84439; 84443; 85025; J3535